=== PATIENT | female | born 1950 | race Two or more races ===

== ENCOUNTER 2024-04-29 08:00 | Inpatient (IN) | payer OTHER ==
[~2024-04-29] VITALS: Ht 160 cm; Wt 72.6 kg
[2024-04-29 09:51] LABS: HEMATOCRIT 36.8 % (36.0-45.00); HEMOGLOBIN 12.3 g/dL (12.0-15.00); MEAN CELL VOLUME 84.3 fL (80.00-100.00); MEAN CORPUSCULAR HEMOGLOBIN 28.3 pg (27.00-32.0); MEAN CORPUSCULAR HGB CONC 33.5 g/dl (32.0-36.0); PLATELET COUNT 218 K/uL (150-450); RED BLOOD COUNT 4.36 M/uL (4.00-6.00); RED CELL DISTRIBUTION WIDTH 12.9 % (11.5-14.5)
[2024-04-29 09:56] LABS: PH,URINE 5.5 (5.0-8.0); URINE APPEARANCE Clear; URINE BILIRRUBIN Negative (NEGATIVE); URINE BLOOD Negative; URINE COLOR Yellow; URINE GLUCOSE Negative (NEGATIVE); URINE KETONE Negative (NEGATIVE); URINE LEUKOCYTE Moderate; URINE NITRATE Negative; URINE PROTEIN 30 (NEGATIVE); URINE UROBILINOGEN 0.2 E.U./dl
[2024-04-29 10:00] LABS: URINE BACTERIA 933.4 uL (0.0-1933); URINE EPITHELIAL CELLS 34.6 uL (0.0-38.8); URINE RBC 6.4 uL (0.0-20.8); URINE WBC 29.6 uL (0.0-23.2)
[2024-04-29 10:13] LABS: INR 1.03; PARTIAL THROMBOPLASTIN TIME 24.2 SECONDS (22.0-34.0); PROTHROMBIN TIME 11.2 SECONDS (9.0-11.5)
[2024-04-29] MEDS ORDERED: FOLIVANE-PLUS1 EACH PO (10:13)
[2024-04-29] MEDS ORDERED: TERAZOSIN HCL1 M1 PO (10:13)
[2024-04-29] MEDS ORDERED: ROSUVASTATIN CA10 MG PO (10:13)
[2024-04-29] MEDS ORDERED: TRIAMTERENE-HC1 EAC3 PO (10:14)
[2024-04-29] MEDS ORDERED: LUMIGAN2.5 M1 OP (10:15)
[2024-04-29 10:19] VITALS: BP 140/80
[2024-04-29 10:31] LABS: URINE CAST 1.37 uL (0.0-1.40)
[2024-04-29 10:53] LABS: ALBUMIN 4.6 gm/dL (3.4-5.0); BILIRUBIN TOTAL 0.54 mg/dL (0.3-1.2); CALCIUM 10.1 mg/dL (8.5-10.1); CREATININE SERUM 0.92 mg/dL (0.55-1.02); GFR 60.18; GLOBULINA 3.8 G/DL (2.4-3.5); POTASSIUM 4.05 mEq/L (3.5-5.1); TOTAL PROTEIN 8.4 gm/dL (6.4-8.2)
[2024-05-04] MEDS ORDERED: ONDANSETRON HCL 2 MG/ML VIAL IV PRN (08:30)
[2024-05-04] MEDS ORDERED: OxyCODONE HCL/APAP UD (PERCOCET) PO PRN (08:30)
[2024-05-04] MEDS ORDERED: ENOXAPARIN SODIUM 30 MG/0.3 ML SYRINGE SUBCUTANEO SCH (09:00)
[2024-05-04] MEDS ORDERED: KETOROLAC TROMETHAMINE 60 MG VIAL IM ONE ×2 (09:45→11:20)
[2024-05-04] MEDS ORDERED: LIDOCAINE HCL 1%/EPINEPHRINE 20ML VIAL IJ ONE (09:45)
[2024-05-04] MEDS ORDERED: MORPHINE SULFATE 4 MG/ML CARTRIDGE IV ONE (09:45)
[2024-05-04] MEDS ORDERED: ISOPROPYL ALCOHOL 30 ML OUNCE TOP ONE (09:45)
[2024-05-04] MEDS ORDERED: BUPIVACAINE HCL 30 ML VIAL IJ ONE (09:45)
[2024-05-04] MEDS ORDERED: CEFAZOLIN SODIUM 1,000 MG VIAL IV ONE (09:45)
[2024-05-04] MEDS ORDERED: VANCOMYCIN HCL 1,000 MG VIAL IR ONE (09:45)
[2024-05-04 12:00] VITALS: BP 138/63
[2024-05-04] MEDS ORDERED: CEFAZOLIN SODIUM 1,000 MG VIAL IV SCH (12:00)
[2024-05-04] MEDS ORDERED: MORPHINE SULFATE 4 MG/ML CARTRIDGE IV SCH (12:00)
[2024-05-04 13:37] VITALS: BP 138/63
[2024-05-04 16:00] VITALS: BP 152/69; O2SAT 97
[2024-05-04] MEDS ORDERED: GABAPENTIN 100 MG CAPSULE PO SCH (21:00)
[2024-05-04] MEDS ORDERED: ORPHENADRINE CITRATE 100 MG TABLET PO SCH (21:00)
[2024-05-05 00:22] VITALS: BP 143/68; O2SAT 100
[2024-05-05 06:33] LABS: HEMATOCRIT 31.1 % (36.0-45.00); HEMOGLOBIN 10.6 g/dL (12.0-15.00); MEAN CELL VOLUME 83.5 fL (80.00-100.00); MEAN CORPUSCULAR HEMOGLOBIN 28.4 pg (27.00-32.0); PLATELET COUNT 160 K/uL (150-450); RED BLOOD COUNT 3.72 M/uL (4.00-6.00)
[2024-05-05 08:55] VITALS: BP 146/64; O2SAT 99
[2024-05-05] MEDS ORDERED: APIXABAN 2.5 MG TABLET PO SCH (09:00)
[2024-05-05] MEDS ORDERED: SOD FERRIC GLUC COMPLX/SUCROSE 62.5 MG/5 ML AMPUL IV SCH (14:04)
[2024-05-05 16:00] VITALS: BP 107/72; O2SAT 95
[2024-05-05] MEDS ORDERED: VITAMIN B COMPLEX 1 EACH PO SCH (17:00)
[2024-05-05] MEDS ORDERED: Cyanocobalamin/Mecobalamin 1 TAB.SL SL SCH (17:00)
[2024-05-06 00:37] VITALS: BP 140/64; O2SAT 100
[2024-05-06 09:39] VITALS: BP 154/68; O2SAT 100
== END 2024-05-06 17:26 | DRG 470 ==
LOC: SURG 08:00 → O/R 05-04 05:27 → SURG 05-04 10:09 → O/R 05-04 14:08 → SURG 05-04 14:11
PROVIDERS: ADMIT Orthopaedic Surgery; ATTEND Orthopaedic Surgery
PROC: 0SRC0JZ Replacement of Right Knee Joint with Synthetic Substitute, Open Approach (ICD-10-PCS; principal; 2024-05-04 10:00)
DX: M17.11 Unilateral primary osteoarthritis, right knee (principal); M85.6 Other cyst of bone